=== PATIENT | female | born 1990 | race Caucasian/White ===

== ENCOUNTER → 2017-04-04 11:00 | Outpatient (CLI) | payer OTHER, SELFPAY ==
[2017-04-04 10:07] VITALS: BP 112/70
[2017-04-04 14:34] LABS: Alanine Aminotransfer ALT/SGPT 106 U/L (13-56)
[2017-04-05 07:21] LABS: Hep B Surface Antibodies Reactive (.); Hep C Antibodies 0.1 s/co ratio (0.0-0.9)
[2017-04-05 12:14] LABS: HIV - WCH Non-Reactive (Nonreactive)
== END ==
PROVIDERS: Visit Provider Physician Assistant
DX: Z77.21 Contact with and (suspected) exposure to potentially hazardous body fluids (principal)
CPT/HCPCS: 36415; 84460; 86703; 86706; 86803